=== PATIENT | female | born 1995 | race Two or more races ===

== ENCOUNTER 2017-04-04 19:18 | Emergency (ER) | payer SELFPAY ==
[~2017-04-04] VITALS: Ht 167.6 cm; Wt 90.7 kg
--- NOTE | 2017-04-04 19:28 | NUR ---
MEDICAL IMAGING TECHNOLOGIST DEGRASSE BEDSIDE FOR PT EVAL.
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
--- NOTE | 2017-04-04 19:40 | NUR ---
URINE SPECIMEN COLLECTED
[2017-04-04] MEDS ORDERED: IBUPROFEN 600 MG TABLET PO ONE (19:45)
[2017-04-04] MEDS: IBUPROFEN 600 MG TABLET PO ONE (19:47)
--- NOTE | 2017-04-04 19:55 | NUR ---
Mother ethan with pt.
--- NOTE | 2017-04-04 19:59 | NUR ---
COMMUNITY OUTREACH DIRECTOR BEDSIDE
--- NOTE | 2017-04-04 20:05 | NUR ---
POLICE OFFICERS BEDSIDE WITH PT.
--- NOTE | 2017-04-04 21:26 | NUR ---
EMT AT BEDSIDE FOR WOUND CARE.
[2017-04-04 21:27] VITALS: BP 119/63
--- NOTE | 2017-04-04 21:36 | NUR ---
Patient discharged to home in stable condition. Written and verbal after care instructions given. Patient verbalizes understanding of instruction. ambulatory with a steady gait
== END 2017-04-04 21:36 | disposition home or self-care (01) ==
LOC: ER 19:20
DX: S16.1XXA Strain of muscle, fascia and tendon at neck level, initial encounter (principal); S40.012A Contusion of left shoulder, initial encounter; F12.10 Cannabis abuse, uncomplicated; V06.99XA Pedestrian with other conveyance injured in collision with other nonmotor vehicle, unspecified whether traffic or nontraffic accident, initial encounter; Y93.89 Activity, other specified; Y92.413 State road as the place of occurrence of the external cause; Y99.8 Other external cause status
CPT/HCPCS: 73010-TC; 84703-TC; A4606; A6402; Z7610